=== PATIENT | male | born 1975 | race Caucasian/White ===

== ENCOUNTER 2017-06-26 16:11 | Emergency (ER) | payer SELFPAY ==
[~2017-06-26] VITALS: Ht 185.4 cm; Wt 90.7 kg
--- OUTSIDE RECORDS SUMMARY | 2017-06-26 16:18 | XMS REPORT | Continuity of Care Document ---
Author Author [facility] Address Unknown Phone Unavailable Allergies Active Description Code Type Severity Reaction Onset Reported/Identified Relationship to Patient Clinical Status Yes No Known Drug Allergies [id number] Drug Allergy Unknown N/ A 04/12/2015 Medications Problems Date Dx Coded Attending Type Code Diagnosis Diagnosed By 02/12/2014 MADL ENVELOPE PRESS OPERATOR LARRY L 719.43 PAIN IN JOINT INVOLVING FOREARM 02/12/2014 MADL ENVELOPE PRESS OPERATOR, LARRY L 719.43 PAIN IN JOINT INVOLVING FOREARM 02/12/2014 MADL ENVELOPE PRESS OPERATOR LARRY L 719.43 PAIN IN JOINT INVOLVING FOREARM 02/12/2014 ARNOLD DO ESPERANZA K 719.43 PAIN IN JOINT INVOLVING FOREARM 02/12/2014 ARNOLD DO ESPERANZA K 719.43 PAIN IN JOINT INVOLVING FOREARM 02/26/2014 MADL ENVELOPE PRESS OPERATOR, LARRY L 372.30 CONJUNCTIVITIS UNSPECIFIED 02/26/2014 MADL ENVELOPE PRESS OPERATOR, LARRY L 723.1 CERVICALGIA 02/26/2014 MADL ENVELOPE PRESS OPERATOR, LARRY L 372.30 CONJUNCTIVITIS UNSPECIFIED 02/26/2014 MADL ENVELOPE PRESS OPERATOR, LARRY L 723.1 CERVICALGIA 02/26/2014 ARNOLD DO, ESPERANZA K 372.30 CONJUNCTIVITIS UNSPECIFIED 02/26/2014 ARNOLD DO, ESPERANZA K 723.1 CERVICALGIA 02/26/2014 ARNOLD DO, ESPERANZA K 372.30 CONJUNCTIVITIS UNSPECIFIED 02/26/2014 ARNOLD DO, ESPERANZA K 723.1 CERVICALGIA 04/09/2014 MADL ENVELOPE PRESS OPERATOR, LARRY L 401.1 HYPERTENSION, BENIGN ESSENTIAL 04/09/2014 ARNOLD DO, ESPERANZA K 401.1 HYPERTENSION, BENIGN ESSENTIAL 04/09/2014 ARNOLD DO, ESPERANZA K 401.1 HYPERTENSION, BENIGN ESSENTIAL 05/09/2014 ARNOLD DO ESPERANZA K 719.42 PAIN- ELBOW 04/12/2015 JAREN DO, LIANG M Ot 305.1 TOBACCO USE DISORDER 04/12/2015 JAREN DO, LIANG M Ot 511.9 PLEURAL EFFUSION NOS 04/18/2015 JAREN DO, LIANG M Ot 305.1 04/18/2015 JAREN DO, LIANG M Ot 511.9 04/18/2015 JAREN DO, LIANG M Ot 786.09 04/30/2015 JAREN DO, LIANG M Ot 305.1 04/30/2015 JAREN DO, LIANG M Ot 493.90 04/30/2015 JAREN DO, LIANG M Ot 511.9 05/09/2015 JAREN DO, LIANG M Ot 305.1 05/09/2015 JAREN DO, LIANG M Ot 493.90 05/09/2015 JAREN DO, LIANG M Ot 511.9 09/02/2015 JAREN DO, LIANG M Ot 305.1 09/02/2015 JAREN DO, LIANG M Ot 511.9 09/02/2015 JAREN DO, LIANG M Ot 786.09 09/02/2015 JAREN DO, LIANG M Ot 305.1 09/02/2015 JAREN DO, LIANG M Ot 493.90 09/02/2015 JAREN DO, LIANG M Ot 511.9 09/02/2015 JAREN DO, LIANG M Ot 786.09 09/02/2015 JAREN DO, LIANG M Ot 305.1 09/02/2015 JAREN DO, LIANG M Ot 493.90 09/02/2015 JAREN DO, LIANG M Ot 511.9 09/10/2015 JAREN DO, LIANG M Ot 305.1 09/10/2015 JAREN DO, LIANG M Ot 511.9 09/10/2015 JAREN DO, LIANG M Ot 786.09 09/10/2015 JAREN DO, LIANG M Ot 305.1 09/10/2015 JAREN DO, LIANG M Ot 493.90 09/10/2015 JAREN DO, LIANG M Ot 511.9 09/10/2015 JAREN DO, LIANG M Ot 786.09 09/10/2015 JAREN DO, LIANG M Ot 305.1 09/10/2015 JAREN DO, LIANG M Ot 493.90 09/10/2015 JAREN DO, LIANG M Ot 511.9 04/16/2016 JAREN DO, LIANG M Ot 305.1 TOBACCO USE DISORDER 04/16/2016 LIANG EASTMAN DO Ot 511.9 PLEURAL EFFUSION NOS 04/16/2016 LIANG EASTMAN DO Ot 786.09 RESPIRATORY ABNORM NEC 04/16/2016 LIANG EASTMAN DO Ot 305.1 TOBACCO USE DISORDER 04/16/2016 LIANG EASTMAN DO Ot 493.90 ASTHMA, UNSPECIFIED 04/16/2016 LIANG EASTMAN DO Ot 511.9 PLEURAL EFFUSION NOS 04/16/2016 LIANG EASTMAN DO Ot 786.09 RESPIRATORY ABNORM NEC 04/16/2016 LIANG EASTMAN DO Ot 305.1 TOBACCO USE DISORDER 04/16/2016 LIANG EASTMAN DO Ot 493.90 ASTHMA, UNSPECIFIED 04/16/2016 LIANG EASTMAN DO Ot 511.9 PLEURAL EFFUSION NOS 04/17/2016 SONIA PATTERSON, FARZANEH S Ot J45.909 UNSPECIFIED ASTHMA, UNCOMPLICATED 04/17/2016 SONIA PATTERSON, FARZANEH S Ot J90 PLEURAL EFFUSION, NOT ELSEWHERE CLASSIFI 05/01/2016 SONIA PATTERSON, FARZANEH S Ot J45.909 UNSPECIFIED ASTHMA, UNCOMPLICATED 05/01/2016 SONIA PATTERSON, FARZANEH S Ot J90 PLEURAL EFFUSION, NOT ELSEWHERE CLASSIFI 07/21/2016 EVELIO MEDLEY DO Ot M23.222 DERANG OF [place] OF MEDIAL MENSC D/ T 07/21/2016 EVELIO MEDLEY DO Ot 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 Visit Date/Time Discharge Status Pt. Type Provider Facility Loc./Unit Complaint [id number] 04/24/2014 09:28:00 04/24/2014 23: 59:59 CLS Outpatient ESPERANZA ARNOLD DO [id number] 04/10/2014 09:03:00 04/10/2014 23: 59:59 CLS Outpatient ESPERANZA ARNOLD DO [id number] 04/09/2014 15:20:00 04/09/2014 23: 59:59 CLS Outpatient LARRY DONALD APRN [id number] 02/26/2014 13:19:00 02/26/2014 23: 59:59 CLS Outpatient LARRY DONALD APRN [id number] 02/12/2014 09:53:00 02/12/2014 23: 59:59 CLS Outpatient LARRY DONALD APRN [id number] 07/20/2016 07:49:00 2015 23:59:59 CLS Outpatient JASMYNE DRUMMONDEVELIO F [facility] RAD TORN MEDIAL MENISCUS WO CHONDROMALACIA LT KNEE [id number] 04/16/2016 14:46:00 2015 23:59:59 CLS Outpatient FARZANEH SCOTT MD [facility] RAD ASTHMA [id number] 05/03/2015 15:19:00 2014 23:59:59 CLS Outpatient LIANG EASTMAN DO [facility] RT PLEURAL EFFUSION DYSPNEA TOBACCO USER ASTHMA [id number] 04/18/2015 10:09:00 2014 23:59:59 CLS Outpatient LIANG EASTMAN DO [facility] RAD PLEURAL EFFUSION,DYSPNEA,TOBACCO USER, ASTHMA [id number] 04/12/2015 06:53:00 2014 10:35:00 DIS Outpatient LIANG EASTMAN DO [facility] SDC PLEURAL EFFUSION [id number] 04/11/2015 10:30:00 2014 23:59:59 CLS Outpatient LIANG EASTMAN DO [facility] RAD PLEURAL EFFUSION,DYSPNEA
--- NOTE | 2017-06-26 16:26 | ED Lower Extremity ---
General Stated Complaint: LEG LAC FROM FALL Source: patient Exam Limitations: no limitations History of Present Illness Time seen by provider: 16:24 Initial Comments To ER with reports of a laceration/deep abrasion to the anterior aspect of the left lower leg. This occurred just prior to arrival when he was walking and tripped, striking this area on the edge of a sharp rock. His tetanus is not up- to-date. He has had pain with weightbearing since this happened. Onset: just prior to arrival Severity: moderate Pain/Injury Location: left leg Method of Injury: fell Allergies and Home Medications Allergies Coded Allergies: No Known Drug Allergies (Unverified , 04/12/15) Home Medications Alprazolam 1 Mg Tablet, (Reported) Amlodipine Besylate 10 Mg Tablet, (Reported) Citalopram Hydrobromide 40 Mg Tablet, (Reported) Lisinopril 30 Mg Tablet, (Reported) Naproxen 500 Mg Tablet., (Reported) Tramadol HCl 50 Mg Tablet, (Reported) Constitutional: see HPI EENTM: see HPI Respiratory: no symptoms reported Cardiovascular: no symptoms reported Genitourinary: no symptoms reported Musculoskeletal: no symptoms reported Skin: see HPI Past Kniawmp-Pbmsfr-Brvteu Hx Patient Social History Recent Foreign Travel: No Contact w/Someone Who Travel: No Physical Exam Vital Signs Vital Sign - Last 12Hours 06/26/17 16:29 Temp 97.9 Pulse 94 Resp 18 B/P (MAP) 189/111 Pulse Ox 96 Capillary Refill : General Appearance: WD/WN, no apparent distress HEENT: PERRL/EOMI, normal ENT inspection Neck: non-tender, full range of motion Respiratory: no respiratory distress, no accessory muscle use Gastrointestinal: non tender, soft Hips: bilateral hip non-tender, bilateral hip normal inspection, bilateral hip normal range of motion Legs: left leg soft tissue tenderness, left leg other (superficial abrasions and one deeper abrasion/laceration about 2 cm in length to the anterior aspect of the left lower leg. No foreign bodies identified.) Knees: bilateral knee non-tender, bilateral knee normal inspection, bilateral knee normal range of motion Ankles: bilateral ankle non-tender, bilateral ankle normal inspection, bilateral ankle normal range of motion Feet: bilateral foot non-tender, bilateral foot normal inspection, bilateral foot normal range of motion Neurologic/Psychiatric: alert, normal mood/affect, oriented x 3 Skin: normal color, warm/dry Laceration Repair : Wound Location: Lower Extremities Wound Length (cm): 2 Wound's Depth, Shape: sub Q Wound Explored: clean Irrigated w/ Saline (ccs): 500 Anesthesia: 1% Lidocaine Suture: Prolene Suture Size: 4-0 Number of Sutures: 2 Layer Closure?: 1 Number Deep Layer Sutures: 0 Progress Area anesthetized with a total of 3 mL of 2 percent lidocaine without epinephrine. Wound then irrigated with 500 mL of Betadine/saline solution. Wound then closed with 2 simple interrupted sutures size 4-0 Prolene. This was closed loosely since I will consider this a contaminated wound. However, due to the gaping nature of the edges of this wound they did need to be brought together Progress/Results/Core Measures Results/Orders My Orders Orders - SHWETA KING APRN Hydrocodone/Apap 5/325 Tablet (Lortab 5 (06/26/17 16:30) Dipht,Pertuss(Acell),Tet Adult (Boostrix (06/26/17 16:30) Amoxicillin/Clavulanate Tablet (Augmenti (06/26/17 16:30) Lidocaine 2% Injection 20 Ml (Xylocaine (06/26/17 16:30) Tibia/Fibula, Left, 2 Views (06/26/17 16:23) Medications Given in ED Current Medications Medications Dose Ordered Sig/Barbara Route Start Time Stop Time Status Last Admin Dose Admin Acetaminophen/ Hydrocodone Bitart 1 tab ONCE ONCE PO 06/26/17 16:30 06/26/17 16:31 DC 06/26/17 16:56 1 TAB Diphtheria/ Tetanus/Acell Pertussis 0.5 ml ONCE ONCE IM 06/26/17 16:30 06/26/17 16:31 DC 06/26/17 16:57 0.5 ML Vital Signs/I&O Vital Sign - Last 12Hours 06/26/17 16:29 Temp 97.9 Pulse 94 Resp 18 B/P (MAP) 189/111 Pulse Ox 96 Departure Impression Impression: Primary Impression: Leg laceration Disposition: 01 HOME, SELF-CARE Condition: Stable Departure-Patient Inst. Decision time for Depature: 17:21 Referrals: NO,LOCAL PHYSICIAN (PCP/Family) Primary Care Physician Patient Instructions: Laceration Repair With Stitches (DC) Add. Discharge Instructions: 1. Keep a close eye on this looking for any sign of infection which would be redness, swelling, fevers chills or puslike drainage 2. Return to ER for any concerns 3. Take antibiotics as directed starting tomorrow morning 4. Change the dressing tomorrow morning and then you may remove it completely on Wednesday morning leaving it open after that point. If you're going to be outside for this may get dirty you may wish to keep it covered with a simple Band-Aid. Otherwise, please return to the emergency room on the of this month, helping, to have the stitches removed. Scripts Amoxicillin/Potassium Clav (Augmentin 875-125 Tablet) 1 Each Tablet 1 EACH PO BID, #14 TAB Prov: SHWETA KING APRN 06/26/17 SHWETA KING APRN Jun 26, 2017 16:26
[2017-06-26] MEDS ORDERED: HYDROcodone/APAP 5 MG/325 MG (LORTAB) TAB PO ONE (16:30)
[2017-06-26] MEDS ORDERED: LIDOCAINE 2% 20 ML (XYLOCAINE) VIAL INJ ONE (16:30)
[2017-06-26] MEDS ORDERED: AUGMENTIN 500 MG TAB (AMOXICILLIN/CLAVULANATE) PO SCH (16:30)
[2017-06-26] MEDS ORDERED: TETANUS,DIPTH,PERTUSS P/F (BOOSTRIX) 0.5 ML VIAL IM ONE (16:30)
[2017-06-26] MEDS ORDERED: TRAM50TA2 (16:39)
[2017-06-26] MEDS ORDERED: CITA40TA11 (16:39)
[2017-06-26] MEDS ORDERED: AMLO10TA2 (16:39)
[2017-06-26] MEDS ORDERED: LISI30TA5 (16:39)
[2017-06-26] MEDS ORDERED: ALPR1TAB7 (16:39)
[2017-06-26] MEDS ORDERED: NAPR500T8 (16:39)
--- NOTE | 2017-06-26 17:07 | Diagnostic Imaging Report ---
INDICATION: Laceration post fall TECHNIQUE: AP and lateral views of the left tibia and fibula 5:10 PM CORRELATION STUDY: None FINDINGS: The tibia and fibula are intact. There is no evidence for acute fracture. Limited visualized portions of the knee and ankle are unremarkable. No definitive radiographic findings for soft tissue foreign body. IMPRESSION: 1.Negative for acute bony abnormality of the leg. Dictated by: Dictated on workstation # [id number]
[2017-06-26] MEDS ORDERED: AMOX-358 PO (17:23)
[2017-06-26] MEDS ORDERED: AUGMENTIN 875 MG TAB (AMOXICILLIN/CLAVULANATE) ONE (17:32)
[2017-06-26 17:45] VITALS: BP 169/107
== END 2017-06-26 17:44 | disposition home or self-care (01) ==
LOC: EDUNIT# 16:11 → ER 16:13
DX: S81.812A Laceration without foreign body, left lower leg, initial encounter (principal); Z23 Encounter for immunization; W01.118A Fall on same level from slipping, tripping and stumbling with subsequent striking against other sharp object, initial encounter; Y93.01 Activity, walking, marching and hiking
CPT/HCPCS: 73590; 90471; 90715

== ENCOUNTER 2018-12-25 11:40 | Emergency (ER) | payer SELFPAY ==
[~2018-12-25] VITALS: Ht 182.9 cm; Wt 81.6 kg
[~2018-12-25 11:40] MED LIST: ALPR1TAB7; AMLO10TA7; AMOX-358 PO; CITA40TA11; LISI30TA5; NAPR500T8; TRAM50TA2
[2018-12-25] MEDS ORDERED: LORazepam INJ 2 MG/ML (ATIVAN) VIAL IVP ONE (12:00)
[2018-12-25] MEDS ORDERED: LACTATED RINGERS 1,000 ML IV SCH (12:00)
--- NOTE | 2018-12-25 12:00 | ED Psychosocial ---
General Chief Complaint: Detox Stated Complaint: BAD STATE Source: patient Exam Limitations: no limitations History of Present Illness Date Seen by Provider: Dec 25, 2018 Time Seen by Provider: 11:56 Initial Comments To ER with reports of being "dope sick". States that he uses methamphetamine the smoking on a regular basis and has done so for a long time. He decided that he wants to quit and 12/20/18 was his most recent usage. Reports chills , diaphoresis, abdominal cramping, nausea, anxiousness. Denies any alcohol use. Has been using Xanax off the street to self medicate and states that that has been a little bit helpful in controlling his symptoms. He states he's had some "bad thoughts" and feels like he would be "better off ". Does not specific plan. He might harm himself. He arrives to ER with his girlfriend. Severity: moderate Associated Symptoms: anxiety, impaired concentration Allergies and Home Medications Allergies Coded Allergies: No Known Drug Allergies (Unverified , 04/12/15) Home Medications Amoxicillin/Potassium Clav 1 Each Tablet, 1 EACH PO BID Prescribed by: SHWETA KING on 06/26/17 1723 Clonidine HCl 0.1 Mg Tablet, 0.1 MG PO BID Prescribed by: SHWETA KING on 12/25/18 1338 Lorazepam 1 Mg Tablet, 1 MG PO BID Prescribed by: SHWETA KING on 12/25/18 1338 Patient Home Medication List Home Medication List Reviewed: Yes Review of Systems Constitutional: see HPI, chills, diaphoresis, malaise, weakness EENTM: see HPI Respiratory: no symptoms reported Cardiovascular: no symptoms reported Genitourinary: no symptoms reported Musculoskeletal: no symptoms reported Skin: no symptoms reported Psychiatric/Neurological: Anxiety, Depressed, Emotional Problems Past Ffijlch-Ljdsav-Kxrhup Hx Patient Social History Alcohol Beverage of Choice: Beer Type Used: Cigarettes Recent Foreign Travel: No Contact w/Someone Who Travel: No Recent Hopitalizations: No Immunizations Up To Date Tetanus Booster (TDap): More than 5yrs Seasonal Allergies Seasonal Allergies: No Past Medical History Surgeries: Yes (L KNEE, FLUID DRAINED FROM LUNG) Orthopedic Respiratory: Yes (ASTHMA) Cardiac: Yes Hypertension Neurological: No Genitourinary: No Gastrointestinal: No Musculoskeletal: No Endocrine: No HEENT: No Cancer: No Psychosocial: Yes Anxiety Blood Disorders: No Physical Exam Vital Signs - First Documented 12/25/18 11:45 Temp 97.8 Pulse 84 Resp 18 B/P (MAP) 178/100 (126) Pulse Ox 100 O2 Delivery Room Air Capillary Refill : Height, Weight, BMI Height: 6'1.00" Weight: 200lbs. oz. 90.259977dd; BMI Method:Stated General Appearance: WD/WN, no apparent distress, other (anxious appearing) HEENT: PERRL/EOMI, normal ENT inspection Neck: non-tender, full range of motion Respiratory: no respiratory distress, no accessory muscle use Cardiovascular: regular rate, rhythm, no murmur Gastrointestinal: normal bowel sounds, non tender, soft Neurologic/Psychiatric: alert, normal mood/affect, oriented x 3 Appearance/Memory: appropriate appearance, appropriate insight, neat Behavior/Eye Contact: cooperative, good eye contact Thoughts/Hallucinations: normal thought pattern, no apparent hallucination Skin: normal color, warm/dry Procedures/Interventions Suture Size: 4-0 Progress/Results/Core Measures Results/Orders Lab Results Laboratory Tests Test 12/25/18 11:55 Range/Units White Blood Count 11.2 H 4.3-11.0 10^3/uL Red Blood Count 5.34 4.35-5.85 10^6/uL Hemoglobin 15.6 13.3-17.7 G/DL Hematocrit 45 40-54 % Mean Corpuscular Volume 85 80-99 FL Mean Corpuscular Hemoglobin 29 25-34 PG Mean Corpuscular Hemoglobin Concent 35 32-36 G/DL Red Cell Distribution Width 14.0 10.0-14.5 % Platelet Count 336 130-400 10^3/uL Mean Platelet Volume 10.6 H 7.4-10.4 FL Neutrophils (%) (Auto) 73 42-75 % Lymphocytes (%) (Auto) 18 12-44 % Monocytes (%) (Auto) 6 0-12 % Eosinophils (%) (Auto) 3 0-10 % Basophils (%) (Auto) 1 0-10 % Neutrophils # (Auto) 8.1 H 1.8-7.8 X 10^3 Lymphocytes # (Auto) 2.0 1.0-4.0 X 10^3 Monocytes # (Auto) 0.7 0.0-1.0 X 10^3 Eosinophils # (Auto) 0.3 0.0-0.3 10^3/uL Basophils # (Auto) 0.1 0.0-0.1 10^3/uL Prothrombin Time 12.3 12.2-14.7 SEC INR Comment 0.9 0.8-1.4 Sodium Level 142 135-145 MMOL/L Potassium Level 4.1 3.6-5.0 MMOL/L Chloride Level 105 98-107 MMOL/L Carbon Dioxide Level 25 21-32 MMOL/L Anion Gap 12 5-14 MMOL/L Blood Urea Nitrogen 14 7-18 MG/DL Creatinine 0.97 0.60-1.30 MG/DL Estimat Glomerular Filtration Rate > 60 BUN/Creatinine Ratio 14 Glucose Level 93 70-105 MG/DL Calcium Level 9.5 8.5-10.1 MG/DL Corrected Calcium 9.5 8.5-10.1 MG/DL Total Bilirubin 0.3 0.1-1.0 MG/DL Aspartate Amino Transf (AST/SGOT) 11 5-34 U/L Alanine Aminotransferase (ALT/SGPT) 18 0-55 U/L Alkaline Phosphatase 103 40-136 U/L Total Protein 7.0 6.4-8.2 GM/DL Albumin 4.0 3.2-4.5 GM/DL Salicylates Level < 5.0 L 5.0-20.0 MG/DL Acetaminophen Level < 10 L 10-30 UG/ML My Orders Orders - SHWETA KING APRN Cbc With Automated Diff (12/25/18 11:54) Comprehensive Metabolic Panel (12/25/18 11:54) Ua Culture If Indicated (12/25/18 11:54) Iv Heplock-Insert (Order) (12/25/18 11:54) Protime With Inr (12/25/18 11:54) Drug Screen Stat (Urine) (12/25/18 11:54) Salicylate (12/25/18 11:54) Acetaminophen (12/25/18 11:54) Lactated Ringers (Lr 1000 Ml Iv Solution (12/25/18 12:00) Lorazepam Injection (Ativan Injection) (12/25/18 12:00) Clonidine Tablet (Catapres Tablet) (12/25/18 12:15) Ondansetron Injection (Zofran Injectio (4/21/19 12:15) Medications Given in ED Current Medications Medications Dose Ordered Sig/Barbara Route Start Time Stop Time Status Last Admin Dose Admin Clonidine HCl 0.1 mg ONCE ONCE PO 12/25/18 12:15 12/25/18 12:16 DC 12/25/18 12:12 0.1 MG Lorazepam 1 mg ONCE ONCE IVP 12/25/18 12:00 12/25/18 12:01 DC 12/25/18 12:11 1 MG Ondansetron HCl 8 mg ONCE ONCE IVP 12/25/18 12:15 12/25/18 12:16 DC 12/25/18 12:12 8 MG Vital Signs/I&O 12/25/18 11:45 Temp 97.8 Pulse 84 Resp 18 B/P (MAP) 178/100 (126) Pulse Ox 100 O2 Delivery Room Air Departure Communication (Admissions) 6505-patient states he is feeling much better at this time, I offered to transfer for inpatient treatment or outpatient treatment. He would prefer to go home and outpatient treatment. I will give him a prescription for clonidine and lorazepam here, patient and girlfriend are agreeable with this plan and will return for any concerns. Impression Primary Impression: Drug abuse Disposition: HOME, SELF-CARE Condition: Stable Departure-Patient Inst. Decision time for Depature: 13:36 Referrals: NO,LOCAL PHYSICIAN (PCP) Primary Care Physician MARYLOU CHOU MD Patient Instructions: Drug Abuse and Drug Addiction (DC) Add. Discharge Instructions: 1. Medication as directed 2. Follow-up with Dr. Chou. Call tomorrow to make an appointment to be seen. Scripts Lorazepam (Lorazepam) 1 Mg Tablet 1 MG PO BID, #14 TAB Prov: SHWETA KING PEANUT SORTER 12/25/18 Clonidine HCl (Clonidine HCl) 0.1 Mg Tablet 0.1 MG PO BID, #14 TAB Prov: SHWETA KING PEANUT SORTER 12/25/18 SHWETA KING PEANUT SORTER Dec 25, 2018 12:00
[2018-12-25 12:01] LABS: BASOPHILS # (AUTO) 0.1 10^3/uL (0.0-0.1); BASOPHILS % (AUTO) 1 % (0-10); EOSINOPHILS # (AUTO) 0.3 10^3/uL (0.0-0.3); EOSINOPHILS % (AUTO) 3 % (0-10); HEMATOCRIT 45 % (40-54); HEMOGLOBIN 15.6 G/DL (13.3-17.7); LYMPHOCYTES % (AUTO) 18 % (12-44); MEAN CORPUSCULAR HEMOGLOBIN 29 PG (25-34); MEAN CORPUSCULAR HGB CONC 35 G/DL (32-36); MEAN CORPUSCULAR VOLUME 85 FL (80-99); MEAN PLATELET VOLUME 10.6 FL (7.4-10.4); MONOCYTES # (AUTO) 0.7 X 10^3 (0.0-1.0); MONOCYTES % (AUTO) 6 % (0-12); NEUTROPHILS # (AUTO) 8.1 X 10^3 (1.8-7.8); NEUTROPHILS % (AUTO) 73 % (42-75); PLATELET COUNT 336 10^3/uL (130-400); WHITE BLOOD COUNT 11.2 10^3/uL (4.3-11.0)
[2018-12-25 12:12] LABS: INR 0.9 (0.8-1.4); PROTHROMBIN TIME PATIENT 12.3 SEC (12.2-14.7)
[2018-12-25] MEDS ORDERED: ONDANSETRON 4 MG/2 ML (SDV) Z0FRAN IVP ONE (12:15)
[2018-12-25] MEDS ORDERED: cloNIDine 0.1 MG (CATAPRES) TAB PO ONE (12:15)
[2018-12-25 12:22] LABS: ALANINE AMINOTRANSFERASE 18 U/L (0-55); ALKALINE PHOSPHATASE 103 U/L (40-136); BILIRUBIN,TOTAL 0.3 MG/DL (0.1-1.0); BUN/CREATININE RATIO 14; CALCIUM 9.5 MG/DL (8.5-10.1); CARBON DIOXIDE 25 MMOL/L (21-32); CHLORIDE 105 MMOL/L (98-107); CREATININE SERUM 0.97 MG/DL (0.60-1.30); GFR ESTIMATED > 60; GLUCOSE 93 MG/DL (70-105); POTASSIUM 4.1 MMOL/L (3.6-5.0); SALICYLATE < 5.0 MG/DL (5.0-20.0); SODIUM 142 MMOL/L (135-145)
[2018-12-25 12:23] LABS: ACETAMINOPHEN < 10 UG/ML (10-30)
--- NOTE | 2018-12-25 13:00 | NUR ---
TO ROOM FEMALE AT BEDSIDE [facility] 98% HR 82 B/P 158/72
[2018-12-25] MEDS ORDERED: LORA1TAB PO (13:38)
[2018-12-25] MEDS ORDERED: CLON0.1T PO (13:38)
[2018-12-25 13:51] VITALS: BP 137/81
== END 2018-12-25 13:51 | disposition home or self-care (01) ==
LOC: EDUNIT# 11:40 → ER 11:42
DX: F15.10 Other stimulant abuse, uncomplicated (principal); J45.909 Unspecified asthma, uncomplicated; I10 Essential (primary) hypertension; F41.9 Anxiety disorder, unspecified
CPT/HCPCS: 36415; 80053; 80329; 85025; 85610; 96374; 96375; 99283

== ENCOUNTER 2020-02-28 17:30 | Emergency (ER) | payer SELFPAY ==
[~2020-02-28] VITALS: Ht 190.5 cm; Wt 81.6 kg
[~2020-02-28 17:30] MED LIST changes: +CLON0.1T PO; +LORA1TAB PO; -TRAM50TA2; +TRM50T
[2020-02-28] MEDS ORDERED: KETOROLAC 60 MG/2 ML VIAL IM ONE (17:45)
[2020-02-28] MEDS ORDERED: ONDANSETRON 4 MG (ZOFRAN) ORAL DISSOLVE TAB PO ONE (17:45)
--- NOTE | 2020-02-28 17:51 | ED Respiratory ---
General Stated Complaint: COUGH,FEVER,SOB Source: patient Exam Limitations: no limitations History of Present Illness Date Seen by Provider: Feb 28, 2020 Time Seen by Provider: 17:30 Initial Comments Patient presents ER by private conveyance from home with chief complaint of 2 days productive cough bodyaches fevers Tmax 100.8F, headache, chills and general malaise. He's had nausea but no diarrhea. He has no sick contact over the weekend with his significant other's cousin who was tested for COVID 19 but he does not know the results of the testing. He has no rash chest pain abdominal pain. Has not taken any acetaminophen or ibuprofen today. He does not take any medications on a regular basis nor does he have any significant medical history. He does have a history of a scope his left knee with torn meniscus. Allergies and Home Medications Allergies Coded Allergies: No Known Drug Allergies (Unverified , 04/12/15) Home Medications Amoxicillin/Potassium Clav 1 Each Tablet, 1 EACH PO BID Prescribed by: SHWETA KING on 06/26/17 1723 Clonidine HCl 0.1 Mg Tablet, 0.1 MG PO BID Prescribed by: SHWETA KING on 12/25/18 1338 Lorazepam 1 Mg Tablet, 1 MG PO BID Prescribed by: SHWETA KING on 12/25/18 1338 Ondansetron 4 Mg Tab.rapdis, 4 MG PO Q6H PRN for NAUSEA/VOMITING Prescribed by: JOSE DAVID LOPEZ on 02/28/20 1804 Patient Home Medication List Home Medication List Reviewed: Yes Review of Systems Review of Systems Constitutional: No chills, No diaphoresis EENTM: No ear discharge, No ear pain Respiratory: cough, phlegm, short of breath Cardiovascular: No chest pain, No Hx of Intervention, No palpitations Gastrointestinal: No abdominal pain, No constipation, No diarrhea; nausea; No vomiting Genitourinary: No dysuria Musculoskeletal: No back pain, No joint pain Skin: No pruritus, No rash Psychiatric/Neurological: Headache; Denies Numbness, Denies Paresthesia All Other Systems Reviewed Negative Unless Noted: Yes Past Oplgtqe-Sxaksw-Fkdhga Hx Patient Social History Alcohol Use: Occasionally Uses Alcohol Beverage of Choice: Beer Recreational Drug Use: Yes Drug of Choice: METH Smoking Status: Current Everyday Smoker Type Used: Cigarettes Recent Hopitalizations: No Immunizations Up To Date Tetanus Booster (TDap): More than 5yrs Seasonal Allergies Seasonal Allergies: No Past Medical History Surgeries: Yes (L KNEE, FLUID DRAINED FROM LUNG) Orthopedic Respiratory: Yes (ASTHMA) Cardiac: Yes Hypertension Neurological: No Genitourinary: No Gastrointestinal: No Musculoskeletal: No Endocrine: No HEENT: No Cancer: No Psychosocial: Yes Anxiety Blood Disorders: No Physical Exam Vital Signs - First Documented 02/28/20 17:30 Temp 37.1 Pulse 101 Resp 20 B/P (MAP) 121/65 (83) Pulse Ox 99 O2 Delivery Room Air Capillary Refill : Height: 6'1.00" Weight: 180lbs. oz. 81.849013qf; BMI Method:Stated General Appearance: WD/WN, mild distress Eyes: Bilateral Eye Normal Inspection, Bilateral Eye PERRL, Bilateral Eye EOMI HEENT: PERRL/EOMI, normal ENT inspection, TMs normal, pharynx normal (mucosa moist) Neck: non-tender, full range of motion, supple, normal inspection Respiratory: lungs clear, normal breath sounds, no respiratory distress, no accessory muscle use Cardiovascular: normal peripheral pulses, regular rate, rhythm Gastrointestinal: normal bowel sounds, non tender, soft Extremities: normal range of motion, non-tender, normal inspection, no pedal edema, no calf tenderness, normal capillary refill Neurologic/Psychiatric: commercial or institutional cleaner II-XII nml as tested, no motor/sensory deficits, alert, normal mood/affect, oriented x 3 Skin: normal color, warm/dry Procedures/Interventions Suture Size: 4-0 Progress/Results/Core Measures Suspected Sepsis SIRS Temperature: Pulse: Respiratory Rate: Laboratory Tests 02/28/20 17:50: White Blood Count 9.0 Blood Pressure / Mean: Laboratory Tests 02/28/20 17:50: Creatinine 0.94, Platelet Count 387, Total Bilirubin 0.3 Results/Orders Lab Results Laboratory Tests Test 02/28/20 17:50 Range/Units White Blood Count 9.0 4.3-11.0 10^3/uL Red Blood Count 5.70 4.35-5.85 10^6/uL Hemoglobin 16.6 13.3-17.7 G/DL Hematocrit 48 40-54 % Mean Corpuscular Volume 84 80-99 FL Mean Corpuscular Hemoglobin 29 25-34 PG Mean Corpuscular Hemoglobin Concent 35 32-36 G/DL Red Cell Distribution Width 13.7 10.0-14.5 % Platelet Count 387 130-400 10^3/uL Mean Platelet Volume 10.1 7.4-10.4 FL Neutrophils (%) (Auto) 66 42-75 % Lymphocytes (%) (Auto) 25 12-44 % Monocytes (%) (Auto) 5 0-12 % Eosinophils (%) (Auto) 3 0-10 % Basophils (%) (Auto) 0 0-10 % Neutrophils # (Auto) 5.9 1.8-7.8 X 10^3 Lymphocytes # (Auto) 2.3 1.0-4.0 X 10^3 Monocytes # (Auto) 0.5 0.0-1.0 X 10^3 Eosinophils # (Auto) 0.3 0.0-0.3 10^3/uL Basophils # (Auto) 0.0 0.0-0.1 10^3/uL Sodium Level 140 135-145 MMOL/L Potassium Level 3.9 3.6-5.0 MMOL/L Chloride Level 105 98-107 MMOL/L Carbon Dioxide Level 25 21-32 MMOL/L Anion Gap 10 5-14 MMOL/L Blood Urea Nitrogen 13 7-18 MG/DL Creatinine 0.94 0.60-1.30 MG/DL Estimat Glomerular Filtration Rate > 60 BUN/Creatinine Ratio 14 Glucose Level 108 H 70-105 MG/DL Calcium Level 9.2 8.5-10.1 MG/DL Corrected Calcium 9.2 8.5-10.1 MG/DL Total Bilirubin 0.3 0.1-1.0 MG/DL Aspartate Amino Transf (AST/SGOT) 15 5-34 U/L Alanine Aminotransferase (ALT/SGPT) 33 0-55 U/L Alkaline Phosphatase 119 40-136 U/L Total Protein 7.8 6.4-8.2 GM/DL Albumin 4.0 3.2-4.5 GM/DL My Orders Orders - JOSE DAVID LOPEZ Cbc With Automated Diff (02/28/20 17:44) Comprehensive Metabolic Panel (02/28/20 17:44) Chest 1 View, Ap/Pa Only (02/28/20 17:44) Coronavirus Sars-Cov-2 So 2018 (02/28/20 17:44) Ketorolac Injection (Toradol Injection) (02/28/20 17:45) Ondansetron Oral Dissolve Tab (Zofran (02/28/20 17:45) Medications Given in ED Current Medications Medications Dose Ordered Sig/Barbara Route Start Time Stop Time Status Last Admin Dose Admin Ketorolac Tromethamine 60 mg ONCE ONCE IM 02/28/20 17:45 02/28/20 17:47 DC 02/28/20 18:05 60 MG Ondansetron HCl 4 mg ONCE ONCE PO 02/28/20 17:45 02/28/20 17:47 DC 02/28/20 18:05 4 MG Vital Signs/I&O 02/28/20 02/28/20 17:30 17:30 Temp 37.1 Pulse 101 Resp 20 B/P (MAP) 121/65 (83) Pulse Ox 99 O2 Delivery Room Air Room Air Capillary Refill : Progress Note : Time: 17:54 Progress Note Borderline aseptic vital signs. Heart rate 102 on entry but at rest the mid 90s. Afebrile at this time. Suspect he has bilateral lower respiratory tract infection versus less likely bacterial pneumonia. We'll treat his symptoms with some Toradol and ondansetron; check some labs and get a chest x-ray. Anything consistent with pneumonia and will put him on antibiotics as well. Covid 19 swab obtained. Counseled symptomatic support and quarantine. Diagnostic Imaging Diagonstic Imaging: Xray Plain Films/CT/US/NM/MRI: chest Comments [facility] [place], [place] NAME: DENNIS CHAVEZ [facility] REC#: [id number] PT STATUS: REG ER : 1975 PHYSICIAN: JOSE DAVID LOPEZ MD ADMIT DATE: 02/28/20/ER Draft Date of Exam:02/28/20 CHEST 1 VIEW, AP/PA ONLY EXAMINATION: Chest radiograph, portable AP view. DATE: 02/28/2020 6:24 PM. INDICATION: 44-year-old male, chest pain, shortness of breath. COMPARISON: April 16, 2016. FINDINGS: Stable overall appearance of the cardiomediastinal silhouette. There is no identified pneumothorax. There is no large pleural effusion. There is no identified focal airspace consolidation. IMPRESSION: No identified acute cardiopulmonary abnormality. Dictated on workstation # [id number] Dict: 02/28/20 183 Trans: 02/28/20 183 [facility] [id number] Interpreted by: BARRY RAMEY MD Electronically signed by: Reviewed: Reviewed by Me Departure Impression Primary Impression: Viral infection of lower respiratory system Disposition: HOME, SELF-CARE Condition: Stable Departure-Patient Inst. Decision time for Depature: 18:44 Referrals: NO,LOCAL PHYSICIAN (PCP/Family) Primary Care Physician Patient Instructions: Coronavirus Disease 2019 (COVID-19) (DC) Add. Discharge Instructions: You're being tested for COVID 19 and we'll have the results back in the next 1-2 days. We will call you with positive results. You need to drink as much fluids as you can tolerate. Sports drinks are encouraged. Tylenol 1000 mg every 8 hours as necessary for body aches or fever. Ibuprofen 800 mg every 8 hours or naproxen 2 tablets twice a day as necessary for body aches and fever. Return to the ER if your symptoms are worsening the point we feel like you cannot catch your breath OR you're having intractable nausea and vomiting despite ondansetron. Ondansetron one tablet under the tongue every 6 hours as necessary for nausea or vomiting. Expect symptoms to last for about 10-14 days. Begin quarantine at home. Have someone bring food and drinks to you. If you live in the house with other people in the need to stay in your bedroom. Use a mask around other people. Wash your hands frequently with soap and water or use hand bar assistant's. Please review the handout for more instructions and details about self quarantine and managing symptoms of viral lower respiratory tract infection/pneumonia. Quarantine lasts for a minimum of 10 days from time of year for symptoms, 02/27/20. It also needs to be at least 72 hours after your last symptoms went away. Whichever is longer. If you have a negative COVID-19 test then you may return to work 72 hours after your symptoms are gone. Scripts Ondansetron (Ondansetron Odt) 4 Mg Tab.rapdis 4 MG PO Q6H PRN for NAUSEA/VOMITING, #12 TAB 0 Refills Prov: JOSE DAVID LOPEZ 02/28/20 Work/School Note: Work Release Form Date Seen in the Emergency Department: Feb 28, 2020 Return to Work: Mar 11, 2020 Restrictions: No Restrictions Other Restrictions Listed Below: May return sooner after 72 hours free of symptoms. JOSE DAVID LOPEZ J Feb 28, 2020 17:51
[2020-02-28 18:04] LABS: BASOPHILS % (AUTO) 0 % (0-10); EOSINOPHILS # (AUTO) 0.3 10^3/uL (0.0-0.3); EOSINOPHILS % (AUTO) 3 % (0-10); HEMATOCRIT 48 % (40-54); HEMOGLOBIN 16.6 G/DL (13.3-17.7); LYMPHOCYTES # (AUTO) 2.3 X 10^3 (1.0-4.0); LYMPHOCYTES % (AUTO) 25 % (12-44); MEAN CORPUSCULAR HEMOGLOBIN 29 PG (25-34); MEAN CORPUSCULAR HGB CONC 35 G/DL (32-36); MEAN CORPUSCULAR VOLUME 84 FL (80-99); MEAN PLATELET VOLUME 10.1 FL (7.4-10.4); MONOCYTES # (AUTO) 0.5 X 10^3 (0.0-1.0); MONOCYTES % (AUTO) 5 % (0-12); NEUTROPHILS # (AUTO) 5.9 X 10^3 (1.8-7.8); NEUTROPHILS % (AUTO) 66 % (42-75); PLATELET COUNT 387 10^3/uL (130-400); RED CELL DISTRIBUTION WIDTH 13.7 % (10.0-14.5)
[2020-02-28] MEDS ORDERED: ONDA4TAB11 PO (18:04)
[2020-02-28 18:09] LABS: CHLORIDE 105 MMOL/L (98-107); POTASSIUM 3.9 MMOL/L (3.6-5.0); SODIUM 140 MMOL/L (135-145)
[2020-02-28 18:11] LABS: CALCIUM 9.2 MG/DL (8.5-10.1)
[2020-02-28 18:12] LABS: GLUCOSE 108 MG/DL (70-105); TOTAL PROTEIN 7.8 GM/DL (6.4-8.2)
[2020-02-28 18:13] LABS: BILIRUBIN,TOTAL 0.3 MG/DL (0.1-1.0); CARBON DIOXIDE 25 MMOL/L (21-32)
[2020-02-28 18:15] LABS: ALKALINE PHOSPHATASE 119 U/L (40-136); CREATININE SERUM 0.94 MG/DL (0.60-1.30); GFR ESTIMATED > 60
[2020-02-28 18:16] LABS: BUN/CREATININE RATIO 14
[2020-02-28 18:18] LABS: ALANINE AMINOTRANSFERASE 33 U/L (0-55)
--- NOTE | 2020-02-28 18:35 | Diagnostic Imaging Report ---
EXAMINATION: Chest radiograph, portable AP view. DATE: 02/28/2020 6:24 PM. INDICATION: 44-year-old male, chest pain, shortness of breath. COMPARISON: April 16, 2016. FINDINGS: Stable overall appearance of the cardiomediastinal silhouette. There is no identified pneumothorax. There is no large pleural effusion. There is no identified focal airspace consolidation. IMPRESSION: No identified acute cardiopulmonary abnormality. Dictated by: Dictated on workstation # [id number]
[2020-02-28 18:55] VITALS: BP 116/72
== END 2020-02-28 18:55 | disposition home or self-care (01) ==
LOC: EDUNIT# 17:30 → ER 17:31
DX: J22 Unspecified acute lower respiratory infection (principal); B97.89 Other viral agents as the cause of diseases classified elsewhere; I10 Essential (primary) hypertension; F41.9 Anxiety disorder, unspecified; F17.210 Nicotine dependence, cigarettes, uncomplicated; Z20.828 Contact with and (suspected) exposure to other viral communicable diseases
CPT/HCPCS: 71045; 80053; 85025; 99282; U0002; 36415; 87635

== ENCOUNTER 2021-03-17 12:48 | Emergency (ER) | payer SELFPAY ==
[~2021-03-17] VITALS: Ht 190 cm; Wt 81.6 kg
[~2021-03-17 12:48] MED LIST changes: +AMLO-251; -AMLO10TA7; +CLN.1T PO; -CLON0.1T PO; +ONDA4TAB11 PO
[2021-03-17 13:07] VITALS: BP 144/102
--- NOTE | 2021-03-17 13:10 | ED General ---
General Chief Complaint: Cough/Cold/Flu Symptoms Stated Complaint: BODY ACHES, COVID EXPOSURE, SOB, LOSS OF TASTE Source of Information: Patient Exam Limitations: No Limitations History of Present Illness Date Seen by Provider: Mar 17, 2021 Time Seen by Provider: 13:10 Initial Comments ER with reports of body aches short of breath loss of taste. He states that he is otherwise healthy. Not vaccinated against Covid. Girlfriend and sister are both positive for Covid he became symptomatic 2 to 3 days ago. Timing/Duration: 2-3 Days Severity: Moderate Associated Systoms: Cough, Headaches Allergies and Home Medications Allergies Coded Allergies: No Known Drug Allergies (Unverified , 04/12/15) Home Medications Amoxicillin/Potassium Clav 1 Each Tablet, 1 EACH PO BID Prescribed by: SHWETA KING on 06/26/17 1723 Clonidine HCl 0.1 Mg Tablet, 0.1 MG PO BID Prescribed by: SHWETA KING on 12/25/18 1338 Lorazepam 1 Mg Tablet, 1 MG PO BID Prescribed by: SHWETA KING on 12/25/18 1338 Ondansetron 4 Mg Tab.rapdis, 4 MG PO Q6H PRN for NAUSEA/VOMITING Prescribed by: JOSE DAVID LOPEZ on 02/28/20 1804 Patient Home Medication List Home Medication List Reviewed: Yes Review of Systems Review of Systems Constitutional: see HPI, weakness EENTM: see HPI Respiratory: no symptoms reported; No short of breath Cardiovascular: no symptoms reported Genitourinary: no symptoms reported Musculoskeletal: no symptoms reported Skin: no symptoms reported Psychiatric/Neurological: No Symptoms Reported Hematologic/Lymphatic: No Symptoms Reported Immunological/Allergic: no symptoms reported Past Cyfhmnz-Qxjzip-Imqpqt Hx Patient Social History Tobacco Use?: Yes Tobacco type used: Cigarettes Smoking Status: Current Everyday Smoker Use of E-Cig and/or Vaping dev: No Use of E-Cig and/or Vaping Buck: Never a User Substance use?: No Alcohol Use?: No Pt feels they are or have been: No Immunizations Up To Date Tetanus Booster (TDap): More than 5yrs First/Initial COVID19 Vaccinat: none Seasonal Allergies Seasonal Allergies: No Past Medical History Surgery/Hospitalization HX: pmh: htn, asthma Surgeries: Yes (L KNEE, FLUID DRAINED FROM LUNG) Orthopedic Respiratory: Yes (ASTHMA) Cardiac: Yes Hypertension Neurological: No Genitourinary: No Gastrointestinal: No Musculoskeletal: No Endocrine: No HEENT: No Cancer: No Psychosocial: Yes Anxiety Blood Disorders: No Physical Exam Vital Signs Vital Signs - First Documented 03/17/21 13:07 Temp 36.6 Pulse 92 Resp 18 B/P (MAP) 144/102 (116) Pulse Ox 99 Capillary Refill : Height, Weight, BMI Height: 6'1.00" Weight: 180lbs. oz. 81.071101ta; 22.00 BMI Method:Stated General Appearance: No Apparent Distress, WD/WN, Thin, Other (Oxygen saturation 99% room air heart rate 85 no respiratory distress) Eyes: Bilateral Eye Normal Inspection, Bilateral Eye PERRL, Bilateral Eye EOMI Neck: Full Range of Motion, Normal Inspection Respiratory: No Accessory Muscle Use, No Respiratory Distress Cardiovascular: Regular Rate, Rhythm, Normal Peripheral Pulses Gastrointestinal: Normal Bowel Sounds, Non Tender, Soft Extremity: Normal Capillary Refill, Normal Inspection Neurologic/Psychiatric: Alert, Oriented x3 Skin: Normal Color, Warm/Dry Procedures/Interventions Suture Size: 4-0 Progress/Results/Core Measures Suspected Sepsis SIRS Temperature: Pulse: Respiratory Rate: Blood Pressure / Mean: Results/Orders Lab Results Laboratory Tests Test 03/17/21 13:09 Range/Units Influenza Type A (RT-PCR) Not Detected Not Detecte Influenza Type B (RT-PCR) Not Detected Not Detecte SARS-CoV-2 RNA (RT-PCR) Detected H Not Detecte My Orders Orders - SHWETA KING APRN Covid 19 Inhouse Test (03/17/21 12:52) Influenza A And B By Pcr (03/17/21 12:52) Vital Signs/I&O 03/17/21 13:07 Temp 36.6 Pulse 92 Resp 18 B/P (MAP) 144/102 (116) Pulse Ox 99 Capillary Refill : Departure Impression Primary Impression: COVID-19 Disposition: 01 HOME, SELF-CARE Condition: Stable Departure-Patient Inst. Decision time for Depature: 13:52 Referrals: NO,LOCAL PHYSICIAN (PCP/Family) Primary Care Physician Patient Instructions: COVID-19 ED Add. Discharge Instructions: 1. Quarantine away from family and friends for 10 days. Return to ER for any concerns. All discharge instructions reviewed with patient and/or family. Voiced understanding. Work/School Note: Work Release Form Date Seen in the Emergency Department: Mar 17, 2021 Return to Work: Mar 27, 2021 SHWETA KING APRN Mar 17, 2021 13:10
== END 2021-03-17 13:50 | disposition home or self-care (01) ==
LOC: EDUNIT# 12:48 → ER 12:51
DX: U07.1 COVID-19 (principal); I10 Essential (primary) hypertension; J45.909 Unspecified asthma, uncomplicated; F41.9 Anxiety disorder, unspecified; F17.210 Nicotine dependence, cigarettes, uncomplicated; Z79.899 Other long term (current) drug therapy
CPT/HCPCS: 87636; 99282

== ENCOUNTER 2022-07-19 03:11 | Emergency (ER) | payer OTHER ==
[~2022-07-19] VITALS: Ht 190.5 cm; Wt 81.0 kg
[~2022-07-19 03:11] MED LIST changes: -CITA40TA11; +CITA40TA13
[2022-07-19 03:20] VITALS: BP 217/114
[2022-07-19] MEDS ORDERED: NS IV 1000 ML 1,000 ML IV STA (03:30)
[2022-07-19] MEDS ORDERED: KETOROLAC 15 MG/ML VIAL IVP STA (03:30)
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
[2022-07-19 03:50] LABS: BASOPHILS # (AUTO) 0.1 10^3/uL (0.0-0.1); BASOPHILS % (AUTO) 0 % (0-10); EOSINOPHILS # (AUTO) 0.2 10^3/uL (0.0-0.3); EOSINOPHILS % (AUTO) 1 % (0-10); HEMATOCRIT 45 % (40-54); HEMOGLOBIN 15.8 g/dL (13.3-17.7); LYMPHOCYTES # (AUTO) 1.6 10^3/uL (1.0-4.0); LYMPHOCYTES % (AUTO) 9 % (12-44); MEAN CORPUSCULAR HEMOGLOBIN 30 pg (25-34); MEAN CORPUSCULAR HGB CONC 35 g/dL (32-36); MEAN CORPUSCULAR VOLUME 84 fL (80-99); MEAN PLATELET VOLUME 10.3 fL (9.0-12.2); MONOCYTES # (AUTO) 1.1 10^3/uL (0.0-1.0); MONOCYTES % (AUTO) 6 % (0-12); NEUTROPHILS # (AUTO) 15.6 10^3/uL (1.8-7.8); NEUTROPHILS % (AUTO) 84 % (42-75); PLATELET COUNT 314 10^3/uL (130-400); WHITE BLOOD COUNT 18.7 10^3/uL (4.3-11.0)
[2022-07-19 04:02] LABS: INR 0.9 (0.8-1.4); PROTHROMBIN TIME PATIENT 12.6 SEC (12.2-14.7)
[2022-07-19 04:22] LABS: BILIRUBIN,URINE NEGATIVE (NEGATIVE); CLARITY,URINE CLEAR; COLOR,URINE YELLOW; GLUCOSE, URINE (UA) NEGATIVE (NEGATIVE); KETONES,URINE NEGATIVE (NEGATIVE); LEUKOCYTE ESTERASE ,URINE NEGATIVE (NEGATIVE); NITRITE,URINE NEGATIVE (NEGATIVE); PH,URINE 6.5 (5-9); PROTEIN,URINE NEGATIVE (NEGATIVE)
[2022-07-19 04:25] LABS: ACETAMINOPHEN < 10 UG/ML (10-30); ALANINE AMINOTRANSFERASE 40 U/L (0-55); ALBUMIN 4.5 GM/DL (3.2-4.5); ALKALINE PHOSPHATASE 114 U/L (40-136); BILIRUBIN,TOTAL 0.2 MG/DL (0.1-1.0); BUN/CREATININE RATIO 13; CALCIUM 9.2 MG/DL (8.5-10.1); CARBON DIOXIDE 26 MMOL/L (21-32); CHLORIDE 106 MMOL/L (98-107); CREATININE SERUM 0.97 MG/DL (0.60-1.30); GFR ESTIMATED 98; GLUCOSE 113 MG/DL (70-105); SALICYLATE < 0.3 MG/DL (5.0-20.0); SODIUM 143 MMOL/L (135-145); TOTAL PROTEIN 8.2 GM/DL (6.4-8.2)
[2022-07-19 04:26] LABS: EOSINOPHILS % (MANUAL) 1 %; LYMPHOCYTES % (MANUAL) 11 %; MONOCYTES % (MANUAL) 3 %; NEUTROPHILS % (MANUAL) 85 %
[2022-07-19 04:30] LABS: BACTERIA,URINE FEW /HPF
[2022-07-19 04:33] LABS: AMPHETAMINE SCREEN, URINE NEGATIVE (NEGATIVE); BARBITURATE SCREEN URINE NEGATIVE (NEGATIVE); BENZODIAZEPINES SCREEN URINE NEGATIVE (NEGATIVE); CANNABINOID SCREEN, URINE NEGATIVE (NEGATIVE); COCAINE SCREEN URINE NEGATIVE (NEGATIVE); METHADONE STAT NEGATIVE (NEGATIVE); OPIATE SCREEN URINE NEGATIVE (NEGATIVE); OXYCODONE STAT NEGATIVE (NEGATIVE); PROPOXYPHENE STAT NEGATIVE (NEGATIVE); TRICYCLIC ANTIDEPRESSANTS SCRE NEGATIVE (NEGATIVE)
[2022-07-19] MEDS ORDERED: hydrALAZINE (APESOLINE) 20 MG/ML VIAL IV STA (05:10)
[2022-07-19] MEDS ORDERED: LISI1TAB46 PO ×2 (05:13→05:14)
--- NOTE | 2022-07-19 06:29 | Diagnostic Imaging Report ---
EXAMINATION: Chest 1 view HISTORY: Chest pain COMPARISON: 02/28/2020 FINDINGS: Heart size and pulmonary vasculature are normal. The lungs are clear without consolidation, pleural effusion, or pneumothorax. The osseous structures are intact. IMPRESSION: 1. No acute radiographic abnormality in the chest. Dictated by: Dictated on workstation # [id number]
--- NOTE | 2022-07-19 06:47 | Diagnostic Imaging Report ---
EXAMINATION: CT head and face without contrast. TECHNIQUE: Multiple contiguous axial images were obtained through the face and brain without the use of intravenous contrast. All CT scans use one or more of the following dose optimizing techniques: automated exposure control, MA and/or KvP adjustment based on patient size and exam type or iterative reconstruction. HISTORY: High blood pressure, headache, right lateral eyelid laceration. COMPARISON: None available. FINDINGS: The ventricles and sulci are normal. No abnormal attenuation of brain parenchyma is present. No acute intracranial hemorrhage or abnormal extra-axial fluid collections are present. No hyperdense vessel. The calvarium is intact. The mastoid air cells are clear. The visualized paranasal sinuses are clear. The orbits are normal. No fracture is seen in the face. The nasal bones are normal. Mandible and maxillae are normal. Zygomatic arches are normal. Pterygoid plates are normal. No soft tissue abnormality is seen. IMPRESSION: 1. No acute intracranial abnormality. 2. No fracture in the face. Dictated by: Dictated on workstation # [id number]
--- NOTE | 2022-07-19 07:36 | Diagnostic Imaging Report ---
EXAMINATION: Left elbow radiograph. EXAM DATE: 07/19/2022 4:05 AM. COMPARISON: None available. HISTORY: Lateral elbow pain. TECHNIQUE: Three views. FINDINGS: There is no acute fracture, dislocation, or destructive osseous process. The joint spaces are normal. The soft tissues are normal. IMPRESSION: No acute osseous abnormality. Dictated by: Dictated on workstation # [id number]
== END 2022-07-19 06:10 ==
LOC: EDUNIT# 03:11 → ER FS 03:15
DX: I10 Essential (primary) hypertension (principal); S01.552A Open bite of oral cavity, initial encounter; S06.0X0A Concussion without loss of consciousness, initial encounter; M25.522 Pain in left elbow; D72.829 Elevated white blood cell count, unspecified; Z28.310 Unvaccinated for COVID-19; Y09 Assault by unspecified means
CPT/HCPCS: 36415; 70450; 70486; 71045; 73080; 80053; 80306; 81000; 83880; 84484; 85007; 85027; 85610; 85730; 87088; 93005; 93041; 99284; G0480 ×3; 80320; 80329